=== PATIENT | female | born 2000 | race Caucasian/White ===

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

== ENCOUNTER 2019-02-28 09:26 | Emergency (ER) | payer MEDICAID ==
[~2019-02-28] VITALS: Ht 154.9 cm; Wt 70.0 kg
[2019-02-28 09:31] VITALS: BP 135/69
--- NOTE | 2019-02-28 09:41 | NUR ---
18 Y/O F C/C RUE PAIN DUE TO SOCCER GAME LAST WEEK. 09/18. NO HEAD TRAUMA/NO LOC. CMS;ROM;RADIAL PULSE WDL. ALLERGIES PNC. HX ASTHMA. RX INHALER PRN. NO N/V/D. SIDE RAIL X1.
--- NOTE | 2019-02-28 10:16 | NUR ---
PT RESTING IN BED, SIDE RAIL X1
[2019-02-28 10:48] VITALS: BP 135/69
--- NOTE | 2019-02-28 10:48 | NUR ---
Patient discharged with v/s stable. Written and verbal after care instructions given and explained. Patient verbalized understanding. Ambulatory with steady gait. All questions addressed prior to discharge. Advised to follow up with PMD.
== END 2019-02-28 10:48 | disposition home or self-care (01) ==
LOC: MED 09:26
DX: M25.531 Pain in right wrist (principal); J45.909 Unspecified asthma, uncomplicated; Z88.0 Allergy status to penicillin
CPT/HCPCS: 73110; 99283

== ENCOUNTER 2019-07-20 15:54 | Emergency (ER) | payer MEDICAID ==
[~2019-07-20] VITALS: Ht 154.9 cm; Wt 74.8 kg
--- NOTE | 2019-07-20 15:57 | NUR ---
PROVIDED PT WITH GOWN AND URINE CUP, AMBULATED TO RESTROOM WITH STEADY GAIT
[2019-07-20 15:58] VITALS: BP 128/83
--- NOTE | 2019-07-20 16:01 | NUR ---
AMBULATED TO BED 6
--- NOTE | 2019-07-20 16:10 | NUR ---
18/F C/O BL LOWER ABD PAIN X 3 DAYS. N/V TODAY, ABOUT 3X NONBLOODY. DENIES DIARRHEA, F/C, UTI SYMPTOMS. STATES PAIN 9/10 SHARP, CONSTANT, WORSE WITH BENDING OVEWR. LMP JUNE 21, 2019. PT APPEARS NAD, SCROLLING THROUGH CELLPHONE MEDHX: ASTHMA, ANEMIA
--- NOTE | 2019-07-20 16:47 | NUR ---
DR. RAMIREZ EVALUATING PT AT BEDSIDE
--- NOTE | 2019-07-20 16:58 | NUR ---
COSTUMING SUPERVISOR AT BEDSIDE FOR BLOOD DRAW
[2019-07-20] MEDS ORDERED: KETOROLAC 60 MG/2 ML VIAL IM ONE (17:00)
[2019-07-20] MEDS ORDERED: ONDANSETRON 4 MG TAB PO ONE (17:00)
--- NOTE | 2019-07-20 17:01 | NUR ---
channel account manager at bedside for blood draw
--- NOTE | 2019-07-20 17:06 | NUR ---
u/s tech at bedside
[2019-07-20 17:11] LABS: BASOPHILS # (AUTO) 0.1 K/uL (0.00-0.22); BASOPHILS % (AUTO) 0.8 % (0.0-2.0); EOSINOPHILS # (AUTO) 0.2 K/uL (0-0.4); EOSINOPHILS % (AUTO) 2.1 % (0.0-4.0); HEMOGLOBIN 12.5 g/dL (12.0-16.0); LYMPHOCYTES # (AUTO) 2.7 K/uL (2.5-16.5); LYMPHOCYTES % (AUTO) 31.6 % (20.5-51.1); MEAN CORPUSCULAR HEMOGLOBIN 26 pg (27-31); MEAN CORPUSCULAR HGB CONC 33 g/dL (33-37); MEAN CORPUSCULAR VOLUME 79.9 fL (80-94); MONOCYTES # (AUTO) 0.6 K/uL (0.8-1.0); MONOCYTES % (AUTO) 6.4 % (1.7-9.3); NEUTROPHILS # (AUTO) 5.1 K/uL (1.8-7.7); NEUTROPHILS % (AUTO) 59.1 % (42.2-75.2); PLATELET COUNT (AUTO) 265 K/uL (140-450); RED BLOOD CELL COUNT(AUTO) 4.76 MIL/uL (4.20-5.40); RED CELL DISTRIBUTION WIDTH 15.4 % (11.6-13.7); WHITE BLOOD COUNT (AUTO) 8.7 K/uL (4.5-11.0)
[2019-07-20 17:26] LABS: ALBUMIN 3.9 g/dL (3.4-5.0); ANION GAP 14.3 (8-16); CARBON DIOXIDE 25.9 mmol/L (21-32); CREATININE 0.6 mg/dL (0.6-1.3); POTASSIUM 3.2 mmol/L (3.5-5.1); TOTAL BILIRUBIN 0.9 mg/dL (0.0-1.0)
--- NOTE | 2019-07-20 18:20 | NUR ---
PT STATES PAIN HAS DECREASED TO 5/10 AT THIS TIME
[2019-07-20 18:45] VITALS: BP 116/73
--- NOTE | 2019-07-20 18:46 | NUR ---
Patient discharged with v/s stable. Written and verbal after care instructions given and explained. Patient alert, oriented and verbalized understanding of instructions. Ambulatory with steady gait. All questions addressed prior to discharge. ID band removed. Patient advised to follow up with PMD. Rx of NAPROSYN 500MG given. Patient educated on indication of medication including possible reaction and side effects. Opportunity to ask questions provided and answered.
[2019-07-20 22:04] LABS: APPEARANCE,URINE CLEAR (CLEAR); BILIRUBIN,URINE NEGATIVE (NEGATIVE); BLOOD, URINE NEGATIVE (NEGATIVE); COLOR,URINE YELLOW (YELLOW); LEUKOCYTE ESTERASE ,URINE NEGATIVE (NEGATIVE); NITRITE, URINE NEGATIVE (NEGATIVE); UGLUCOSE NEGATIVE (NEGATIVE)
== END 2019-07-20 18:46 | disposition home or self-care (01) ==
LOC: MED 15:54
DX: N83.00 Follicular cyst of ovary, unspecified side (principal); J45.909 Unspecified asthma, uncomplicated; R10.30 Lower abdominal pain, unspecified; Z88.0 Allergy status to penicillin; Z86.2 Personal history of diseases of the blood and blood-forming organs and certain disorders involving the immune mechanism; Z87.828 Personal history of other (healed) physical injury and trauma
CPT/HCPCS: 36415; 76830; 80053; 81003; 81025; 85025; 93976; 96372; 99284; J1885; Q0092; Q0162

== ENCOUNTER 2020-04-05 19:45 | Emergency (ER) | payer MEDICAID ==
[~2020-04-05] VITALS: Ht 152.4 cm; Wt 72.6 kg
[2020-04-05 19:52] VITALS: BP 121/70
--- NOTE | 2020-04-05 19:52 | NUR ---
TO BED AMBULATORY
--- NOTE | 2020-04-05 19:55 | NUR ---
PATIENT PROVIDED UA, UA AT BEDSIDE.
--- NOTE | 2020-04-05 20:00 | NUR ---
HAILEY 19 Y/O FEMALE BIB SELF FOR C/O R SIDED PELVIC PAIN RADIATING TO L SIDE X 3 MONTHS. PATIENT STATES DENIES ABNORMAL BLEEDING OR VAGINAL DISCHARGE. PATIENT STATES PAIN COMES AND GOES X 3 MONTHS AND HAS OCCASIONAL NAUSEA WHEN PAIN IS HIGH. PATIENT ALSO HAS C/O URINARY BURNING X 1 WEEK. SEE COMPLETE ASSESSMENT FOR FURTHER DETAILS. MEDHX: ASTHMA, ANEMIA ALLERGIES: PCN
--- NOTE | 2020-04-05 20:14 | NUR ---
Dr. Narayan examining patient.
[2020-04-05] MEDS ORDERED: IBUP-2213 PO (20:25)
[2020-04-05] MEDS ORDERED: ACET-8386 PO (20:25)
[2020-04-05] MEDS ORDERED: ONDA8TAB87 PO (20:25)
[2020-04-05] MEDS ORDERED: CIPR250T3 PO (20:25)
[2020-04-05 20:35] VITALS: BP 118/79
--- NOTE | 2020-04-05 20:35 | NUR ---
Patient discharged with v/s stable. Written and verbal after care instructions given and explained. Patient alert, oriented and verbalized understanding of instructions. Ambulatory with steady gait. All questions addressed prior to discharge. ID band removed. Patient advised to follow up with PMD. Rx of CIRPO, IBUPROFEN, ONDANSETRON, HYDROCODONE/ACETOMINOPHEN given. Patient educated on indication of medication including possible reaction and side effects. Opportunity to ask questions provided and answered.
== END 2020-04-05 20:35 | disposition home or self-care (01) ==
LOC: MED 19:45
DX: R10.9 Unspecified abdominal pain (principal); R30.0 Dysuria; J45.909 Unspecified asthma, uncomplicated; Z88.0 Allergy status to penicillin
CPT/HCPCS: 81002; 81025; 99283

== ENCOUNTER 2020-04-12 11:14 | Emergency (ER) | payer MEDICAID ==
[~2020-04-12] VITALS: Ht 152.4 cm; Wt 72.6 kg
[~2020-04-12 11:14] MED LIST: ACET-8386 PO; CIPR250T3 PO; IBUP-2213 PO; ONDA8TAB87 PO
[2020-04-12 11:20] VITALS: BP 132/111
--- NOTE | 2020-04-12 11:21 | NUR ---
PATIENT AMBULATED WITH STEADY GAIT TO BED 3.
--- NOTE | 2020-04-12 11:25 | NUR ---
19 y/o female c/o sob ever since dx with covid in January 2020, pt also states she was seen a week ago for ovarian cyst but still c/o lower abd pain radiating to the back. pt rates pain 8/10 that is intermittent and describes it as sharp and cramping. pt states pain is worse with walking and bending over. pt states she took ibuprofn last night with relief. pt states that she feels "out of breath" and has been having asthma attachs back to back x2 days and has been using inhaler and nebulizer. on assessment, spo2 98% on RA and lung sounds clear bilateral throughout and no signs of distress. pt states that when she breaths in, she feels pressure in her chest. pt states her throat feels dry/sinclair, still has loss of smell with N/V/D x1 day. pt states it sinclair when she pees but was given meds from last visit and it is better. abd is flat, soft, and tender on palpation with active bowel sounds x4 quads. pt is a/o x4 with even and unlabored respirations. hx asthma, anemia allergies: penicillin
--- NOTE | 2020-04-12 11:39 | NUR ---
Patient being evaluated by Dr. Jean-Baptiste at bedside.
--- NOTE | 2020-04-12 12:05 | NUR ---
BLOOD AND URINE SAMPLES GIVEN TO INVESTMENT STRATEGIST
[2020-04-12 12:21] LABS: BASOPHILS # (AUTO) 0.2 K/uL (0.00-0.22); BASOPHILS % (AUTO) 1.7 % (0.0-2.0); EOSINOPHILS # (AUTO) 0.2 K/uL (0-0.4); EOSINOPHILS % (AUTO) 1.8 % (0.0-4.0); HEMATOCRIT 40.8 % (36-48); HEMOGLOBIN 13.2 g/dL (12.0-16.0); LYMPHOCYTES # (AUTO) 2.7 K/uL (2.5-16.5); LYMPHOCYTES % (AUTO) 27.2 % (20.5-51.1); MEAN CORPUSCULAR HEMOGLOBIN 26 pg (27-31); MEAN CORPUSCULAR HGB CONC 33 g/dL (33-37); MEAN CORPUSCULAR VOLUME 80.1 fL (80-94); MONOCYTES # (AUTO) 0.7 K/uL (0.8-1.0); NEUTROPHILS # (AUTO) 6.1 K/uL (1.8-7.7); NEUTROPHILS % (AUTO) 62.3 % (42.2-75.2); PLATELET COUNT (AUTO) 295 K/uL (140-450); RED BLOOD CELL COUNT(AUTO) 5.09 MIL/uL (4.20-5.40); RED CELL DISTRIBUTION WIDTH 15.4 % (11.6-13.7); WHITE BLOOD COUNT (AUTO) 9.8 K/uL (4.5-11.0)
[2020-04-12 12:35] LABS: ALBUMIN 4.2 g/dL (3.4-5.0); ANION GAP 14.1 (8-16); CARBON DIOXIDE 24.6 mmol/L (21-32); CREATININE 0.6 mg/dL (0.6-1.3); POTASSIUM 3.7 mmol/L (3.5-5.1); TOTAL BILIRUBIN 0.4 mg/dL (0.0-1.0)
[2020-04-12 12:56] LABS: APPEARANCE,URINE CLEAR (CLEAR); BILIRUBIN,URINE NEGATIVE (NEGATIVE); BLOOD, URINE NEGATIVE (NEGATIVE); COLOR,URINE YELLOW (YELLOW); LEUKOCYTE ESTERASE ,URINE NEGATIVE (NEGATIVE); NITRITE, URINE NEGATIVE (NEGATIVE); PH,URINE 5.5 (5.0-9.0); UGLUCOSE NEGATIVE (NEGATIVE)
--- NOTE | 2020-04-12 12:57 | NUR ---
PT TAKEN TO CT VIA W/C
--- NOTE | 2020-04-12 13:09 | NUR ---
PT BACK FROM CT. AMBULATED TO RESTROOM WITH STEADY GAIT. DENIES PAIN AT THIS TIME.
[2020-04-12 14:11] VITALS: BP 132/111
== END 2020-04-12 14:11 | disposition home or self-care (01) ==
LOC: MED 11:14
DX: R10.2 Pelvic and perineal pain (principal); R19.7 Diarrhea, unspecified; J45.909 Unspecified asthma, uncomplicated; Z88.0 Allergy status to penicillin; Z79.899 Other long term (current) drug therapy
CPT/HCPCS: 36415; 74177; 80053; 81003; 81025; 83690; 84703; 85025; 99285; Q9967

== ENCOUNTER 2022-02-22 08:29 | Emergency (ER) | payer MEDICAID ==
[~2022-02-22] VITALS: Ht 152.4 cm; Wt 82.6 kg
[~2022-02-22 08:29] MED LIST changes: -ACET-8386 PO; +ACET-8905 PO
[2022-02-22 08:32] VITALS: BP 113/62
--- NOTE | 2022-02-22 11:25 | NUR ---
PATIENT LEFT WITHOUT BEING SEEN BY DR. URIOSTEGUI. NO FURTHER CARE PROVIDED FOR PATIENT.
--- NOTE | 2022-02-22 11:25 | NUR ---
DR. URIOSTEGUI CALLED FOR PT IN LOBBY, NO ANSWER.
== END 2022-02-22 11:35 | disposition left against medical advice (07) ==
LOC: MED 08:29
DX: M79.675 Pain in left toe(s) (principal); M79.674 Pain in right toe(s); Z53.21 Procedure and treatment not carried out due to patient leaving prior to being seen by health care provider

== ENCOUNTER 2023-03-30 08:54 | Emergency (ER) | payer MEDICAID ==
[~2023-03-30] VITALS: Ht 152.4 cm; Wt 70.3 kg
[2023-03-30 08:55] VITALS: BP 116/68; PULSE 91; RESP 18; TEMP 97.7; O2SAT 96
[2023-03-30 09:27] LABS: APPEARANCE,URINE SL CLOUDY (CLEAR); BILIRUBIN,URINE NEGATIVE (NEGATIVE); BLOOD, URINE NEGATIVE (NEGATIVE); COLOR,URINE YELLOW (YELLOW); LEUKOCYTE ESTERASE ,URINE TRACE (NEGATIVE); NITRITE, URINE NEGATIVE (NEGATIVE); PROTEIN,URINE NEGATIVE (NEGATIVE); UGLUCOSE NEGATIVE (NEGATIVE); UROBILINOGEN,URINE 0.2 EU/dL (0.2 - 1)
[2023-03-30 09:49] LABS: BACTERIA,URINE FEW /HPF (None Seen); SQUAMOUS EPITHELIAL CELL,UR 4-10 (MOD) /LPF (0-3 (FEW)); WBC,URINE 0-5 /HPF (0-5)
[2023-03-30] MEDS: ALBUTEROL SULFATE/IPRATROPIU 3 ML SOL IH ONE (10:02)
[2023-03-30 10:03] VITALS: PULSE 95; RESP 18; O2SAT 98
[2023-03-30 11:24] LABS: FLU A ANTIGEN negative (NEGATIVE); FLU B ANTIGEN negative (NEGATIVE)
[2023-03-30] MEDS ORDERED: ALBU0.0912 IH (11:44)
[2023-03-30] MEDS ORDERED: ROB PO (11:44)
== END 2023-03-30 11:58 | disposition home or self-care (01) ==
LOC: MED 08:54
DX: J06.9 Acute upper respiratory infection, unspecified (principal); Z20.822 Contact with and (suspected) exposure to COVID-19; J45.909 Unspecified asthma, uncomplicated; Z76.0 Encounter for issue of repeat prescription; Z79.899 Other long term (current) drug therapy
CPT/HCPCS: 71045; 81001; 81025; 94640; 99284

== ENCOUNTER 2023-06-11 09:01 | Emergency (ER) | payer MEDICAID ==
[~2023-06-11] VITALS: Ht 152.4 cm; Wt 80.3 kg
[~2023-06-11 09:01] MED LIST changes: +ALBU0.0912 IH; +ROB PO
[2023-06-11 09:03] VITALS: BP 108/60; PULSE 100; RESP 20; TEMP 98.3; O2SAT 100
[2023-06-11] MEDS: NACL 0.9% 1,000 ML IV ONE (09:43)
[2023-06-11] MEDS: KETOROLAC 30 MG/ML VIAL IVP ONE (09:44)
[2023-06-11] MEDS: ONDANSETRON 4 MG/2 ML VIAL IVP ONE (09:45)
[2023-06-11 10:12] LABS: BASOPHILS % (AUTO) 0.2 % (0.0-2.0); EOSINOPHILS % (AUTO) 0.3 % (0.0-4.0); HEMATOCRIT 39.8 % (36-48); HEMOGLOBIN 13.3 g/dL (12.0-16.0); LYMPHOCYTES # (AUTO) 1.1 K/uL (2.5-16.5); LYMPHOCYTES % (AUTO) 8.7 % (20.5-51.1); MEAN CORPUSCULAR HEMOGLOBIN 28 pg (27-31); MEAN CORPUSCULAR HGB CONC 34 g/dL (33-37); MEAN CORPUSCULAR VOLUME 83.8 fL (80-94); MONOCYTES # (AUTO) 0.6 K/uL (0.8-1.0); MONOCYTES % (AUTO) 4.8 % (1.7-9.3); NEUTROPHILS # (AUTO) 10.9 K/uL (1.8-7.7); PLATELET COUNT (AUTO) 248 K/uL (140-450); RED BLOOD CELL COUNT(AUTO) 4.75 MIL/uL (4.20-5.40); RED CELL DISTRIBUTION WIDTH 14.1 % (11.6-13.7); WHITE BLOOD COUNT (AUTO) 12.7 K/uL (4.8-10.8)
[2023-06-11 11:10] LABS: CALCIUM 8.8 mg/dL (8.5-10.1); CREATININE 0.6 mg/dL (0.6-1.3); POTASSIUM 3.5 mmol/L (3.5-5.1)
[2023-06-11 11:16] LABS: ALBUMIN 3.9 g/dL (3.4-5.0); BILIRUBIN,DIRECT 0.2 mg/dL (0.0-0.3); TOTAL BILIRUBIN 1.3 mg/dL (0.0-1.0); TOTAL PROTEIN, SERUM 7.7 g/dL (6.4-8.2)
[2023-06-11 11:23] LABS: ANION GAP 17.4 (8-16); CARBON DIOXIDE 23.1 mmol/L (21-32)
[2023-06-11 12:46] LABS: APPEARANCE,URINE CLEAR (CLEAR); BILIRUBIN,URINE NEGATIVE (NEGATIVE); BLOOD, URINE TRACE-I (NEGATIVE); COLOR,URINE YELLOW (YELLOW); LEUKOCYTE ESTERASE ,URINE NEGATIVE (NEGATIVE); NITRITE, URINE NEGATIVE (NEGATIVE); PROTEIN,URINE NEGATIVE (NEGATIVE); UGLUCOSE NEGATIVE (NEGATIVE); UROBILINOGEN,URINE 0.2 EU/dL (0.2 - 1)
[2023-06-11] MEDS: LIDOCAINE 5% 1 EA PATCH TP ONE (12:49)
[2023-06-11] MEDS ORDERED: ONDA-188 SL (13:07)
[2023-06-11] MEDS ORDERED: IBUP-2218 PO (13:07)
[2023-06-11 13:13] VITALS: BP 107/73; PULSE 91; RESP 19; TEMP 98.3; O2SAT 100
== END 2023-06-11 13:14 | disposition home or self-care (01) ==
LOC: MED 09:01
DX: R10.30 Lower abdominal pain, unspecified (principal); R11.2 Nausea with vomiting, unspecified; J45.909 Unspecified asthma, uncomplicated; Z79.899 Other long term (current) drug therapy; Z88.0 Allergy status to penicillin
CPT/HCPCS: 36415; 76856; 80048; 80076; 81003; 81025; 83690; 85025; 93976; 96361; 96374; 96375; 99285; J1885; J2405; J7030; Q0092